=== PATIENT | female | born 1990 | race Caucasian/White ===

== ENCOUNTER 2021-11-16 00:30 | Inpatient (IN) | payer OTHER ==
[2021-11-16] MEDS ORDERED: AMPICILLIN - 2 GM in SODIUM CHLORIDE 100 ML IVPB ONE (01:22)
[2021-11-16] MEDS ORDERED: BETAMET ACET/BETAMET NA PH 30 MG/5 ML VIAL IM ONE (01:22)
[2021-11-16] MEDS ORDERED: MAGNESIUM 4GM/H20 - 4 GM/100 ML IVPB IVPB SCH (01:30)
[2021-11-16] MEDS ORDERED: MAGNESIUM SULFATE 20GM/500ML - 20 GM/500 ML INFUS.BAG IVPB SCH (01:30)
[2021-11-16] MEDS ORDERED: DEXTROSE 5%-LACTATED RINGERS 1,000 ML IV SCH (01:30)
[2021-11-16] MEDS ORDERED: AMPICILLIN SODIUM 2 GM VIAL ONE (02:17)
[2021-11-16 02:23] LABS: HEMATOCRIT 34.2 % (32.4-45.2); HEMOGLOBIN 11.7 GM/dL (10.7-15.3); MCH 31.3 pg (25.7-33.7); MCHC 34.2 g/dl (32.0-36.0); MEAN CELL VOLUME 91.5 fl (80-96); MEAN PLT VOLUME 7.9 fl (7.5-11.1); PLATELET COUNT 263 10^3/uL (134-434); RBC 3.73 M/mm3 (3.60-5.2); RDW 14.3 % (11.6-15.6)
[2021-11-16] MEDS ORDERED: MAGNESIUM SULFATE 20GM/500ML - 20 GM/500 ML INFUS.BAG ONE (02:24)
[2021-11-16] MEDS ORDERED: MAGNESIUM 4GM/H20 - 4 GM/100 ML IVPB IVPB ONE (02:25)
[2021-11-16] MEDS ORDERED: BETAMET ACET/BETAMET NA PH 30 MG/5 ML VIAL ONE (02:27)
[2021-11-16 02:29] LABS: INR 0.94 (0.83-1.09); PROTHROMBIN TIME (PATIENT) 10.8 SEC (9.7-13.0)
[2021-11-16 02:32] LABS: ACTIVATED PTT 24.1 SECONDS (25.2-36.5)
[2021-11-16 02:44] LABS: CALCIUM 9.9 mg/dL (8.5-10.1)
[2021-11-16 02:48] LABS: CREATININE 0.4 mg/dL (0.55-1.3)
[2021-11-16 03:12] LABS: ANISOCYTOSIS 1+; MACROCYTOSIS 0
[2021-11-16 03:37] LABS: HIV INTERPRETATION NEGATIVE (NEGATIVE)
[2021-11-16 04:33] VITALS: RESP 18; BMI 27.3
[2021-11-16 04:43] VITALS: TEMP 98.7
[2021-11-16 04:49] VITALS: BP 124/55; PULSE 106
== END 2021-11-16 04:20 | disposition short-term general hospital (02) | DRG 833 ==
LOC: JDEL 00:30 → JLDR 02:00
PROVIDERS: ADMIT Obstetrics & Gynecology; ATTEND Obstetrics & Gynecology
DX: O42.012 Preterm premature rupture of membranes, onset of labor within 24 hours of rupture, second trimester (principal)
CPT/HCPCS: 36415; 76801-TC; 80048; 83735; 85025; 85610; 85730; 86780; 86850; 86900; 86901; 87389; 96372; C9803-CS; U0003; U0005

== ENCOUNTER 2022-02-24 19:15 | Inpatient (IN) | payer OTHER ==
[2022-02-24 20:19] VITALS: BMI 29.6
[2022-02-24] MEDS ORDERED: CITRIC ACID/SODIUM CITRATE 30 ML UNIT-DOSE CUP PO ONE (22:25)
[2022-02-24] MEDS ORDERED: ELECTROLYTE-148 SOLN 1,000 ML IV SCH (22:30)
[2022-02-24] MEDS ORDERED: FENTANYL CITRATE/PF 50 MCG/ML VIAL ONE (23:22)
[2022-02-24] MEDS ORDERED: morphine SULFATE (PF) 1 MG/2 ML SYRINGE ONE (23:22)
[2022-02-25] MEDS ORDERED: OXYTOCIN 10 UNITS/ML VIAL ONE (00:20)
[2022-02-25] MEDS ORDERED: KETOROLAC TROMETHAMINE 30 MG/1 ML VIAL ONE (00:20)
[2022-02-25] MEDS ORDERED: ONDANSETRON 4 MG/2 ML VIAL ONE (00:20)
[2022-02-25] MEDS ORDERED: ceFAZolin SODIUM 1 GM VIAL ONE (00:20)
[2022-02-25] MEDS ORDERED: ACETAMINOPHEN 325 MG TABLET (FP) PO PRN (00:57)
[2022-02-25] MEDS ORDERED: BENZOCAINE 28 GM HEMORRHOIDAL OINTMENT TP PRN (00:57)
[2022-02-25] MEDS ORDERED: BENZOCAINE 20% 57 GM BOTTLE TP PRN (00:57)
[2022-02-25] MEDS ORDERED: WITCH HAZEL 50% (TUCKS) 40 PAD/JAR PAD TP PRN (00:57)
[2022-02-25] MEDS ORDERED: METHYLERGONOVINE MALEATE 0.2 MG/1 ML AMP IM PRN (00:57)
[2022-02-25] MEDS ORDERED: morphine SULFATE (PF) 1 MG/2 ML SYRINGE EP ONE (01:06)
[2022-02-25] MEDS ORDERED: ONDANSETRON 4 MG/2 ML VIAL IVPUSH PRN (01:06)
[2022-02-25] MEDS ORDERED: ACETAMINOPHEN 1000 MG/100 ML BAG IVPB ONE (01:07)
[2022-02-25 01:42] LABS: CORD HCO3 26.8 mmHg (20-29); CORD PCO2 55.7 mmHg (30-78)
[2022-02-25 01:44] LABS: CORD BASE EXCESS -1.9 mmol/L (0-2); CORD HCO3 22.6 mmHg (20-29); CORD PCO2 38.3 mmHg (30-78); CORD pH 7.389 (7.14-7.44)
[2022-02-25] MEDS: IBUPROFEN 800 MG/8 ML IJ IVPB PRN ×2 (03:28→12:19)
[2022-02-25] MEDS: CEFAZOLIN 1 GM in DEXTROSE 5%-WATER - 50 ML IVPB SCH ×3 (06:19→17:36)
[2022-02-25] MEDS: OXYTOCIN 20 UNITS in 0.9% NS 20 UNIT/1,000 ML INFUS.BAG IV SCH ×3 (06:26→12:27)
[2022-02-25] MEDS: PRENATAL VITAMINS W/ FOLIC ACID TABLET (FP) PO SCH (09:21)
[2022-02-25] MEDS: SIMETHICONE 80 MG TAB.CHEW (FP) PO PRN ×2 (12:20→20:39)
[2022-02-25] MEDS ORDERED: oxyCODONE HCL 5 MG TABLET PO PRN ×2 (12:58)
[2022-02-25] MEDS: IBUPROFEN 600 MG TABLET (FP) PO PRN (20:39)
[2022-02-26] MEDS ORDERED: BISACODYL 10 MG SUPP.RECT RC PRN (00:58)
[2022-02-26] MEDS: SIMETHICONE 80 MG TAB.CHEW (FP) PO PRN ×5 (01:21→22:23)
[2022-02-26] MEDS: IBUPROFEN 600 MG TABLET (FP) PO PRN ×5 (01:21→22:23)
[2022-02-26 07:27] LABS: BASO % 0.1 % (0-2.0); EOS % 0.2 % (0-4.5); HEMOGLOBIN 10.4 GM/dL (10.7-15.3); LYMPH % 8.2 % (8-40); MCH 28.2 pg (25.7-33.7); MCHC 33.4 g/dl (32.0-36.0); MEAN CELL VOLUME 84.5 fl (80-96); MEAN PLT VOLUME 8.6 fl (7.5-11.1); MONO % 5.1 % (3.8-10.2); NEUT % 86.4 % (42.8-82.8); PLATELET COUNT 183 10^3/uL (134-434); RBC 3.67 M/mm3 (3.60-5.2); RDW 17.7 % (11.6-15.6); WHITE BLOOD COUNT 11.4 K/mm3 (4.0-10.0)
[2022-02-26] MEDS: PRENATAL VITAMINS W/ FOLIC ACID TABLET (FP) PO SCH (10:08)
[2022-02-26] MEDS: ENOXAPARIN NA (PORCINE) 40 MG/0.4 ML DISP.SYRIN SQ SCH (10:09)
[2022-02-27] MEDS: SIMETHICONE 80 MG TAB.CHEW (FP) PO PRN ×5 (06:19→23:31)
[2022-02-27] MEDS: IBUPROFEN 600 MG TABLET (FP) PO PRN ×5 (06:20→23:30)
[2022-02-27] MEDS: ENOXAPARIN NA (PORCINE) 40 MG/0.4 ML DISP.SYRIN SQ SCH (10:45)
[2022-02-27] MEDS: PRENATAL VITAMINS W/ FOLIC ACID TABLET (FP) PO SCH (10:45)
[2022-02-28] MEDS: SIMETHICONE 80 MG TAB.CHEW (FP) PO PRN ×3 (05:57→14:26)
[2022-02-28] MEDS: IBUPROFEN 600 MG TABLET (FP) PO PRN ×3 (05:57→14:26)
[2022-02-28 10:08] LABS: BASO % 0.3 % (0-2.0); EOS % 1.7 % (0-4.5); HEMATOCRIT 31.1 % (32.4-45.2); HEMOGLOBIN 10.2 GM/dL (10.7-15.3); LYMPH % 14.5 % (8-40); MCH 28.3 pg (25.7-33.7); MCHC 32.8 g/dl (32.0-36.0); MEAN CELL VOLUME 86.3 fl (80-96); MEAN PLT VOLUME 8.2 fl (7.5-11.1); MONO % 7.9 % (3.8-10.2); NEUT % 75.6 % (42.8-82.8); PLATELET COUNT 211 10^3/uL (134-434); RDW 18.3 % (11.6-15.6); WHITE BLOOD COUNT 7.8 K/mm3 (4.0-10.0)
[2022-02-28] MEDS: ENOXAPARIN NA (PORCINE) 40 MG/0.4 ML DISP.SYRIN SQ SCH (10:12)
[2022-02-28] MEDS: PRENATAL VITAMINS W/ FOLIC ACID TABLET (FP) PO SCH (10:12)
[2022-02-28 16:46] VITALS: BP 122/68; PULSE 77; RESP 17; TEMP 98.1
== END 2022-02-28 14:55 | disposition home or self-care (01) | DRG 788 ==
LOC: JLDR 19:15 → J3W 02-25 02:41
PROVIDERS: ADMIT Obstetrics & Gynecology; ATTEND Obstetrics & Gynecology
PROC: 10D00Z1 Extraction of Products of Conception, Low, Open Approach (ICD-10-PCS; principal; 2022-02-25)
DX: O32.2XX0 Maternal care for transverse and oblique lie, not applicable or unspecified (principal); O48.0 Post-term pregnancy; Z3A.40 40 weeks gestation of pregnancy; Z37.0 Single live birth
CPT/HCPCS: 36415; 36600; 82803; 85025; 88307-TC